=== PATIENT | female | born 1980 | race Caucasian/White ===

== ENCOUNTER 2021-08-10 19:00 | Emergency (ER) | payer OTHER ==
[~2021-08-10] VITALS: Ht 172.7 cm; Wt 101.0 kg
[2021-08-10 19:02] VITALS: BP 188/104
== END 2021-08-10 21:25 | disposition left against medical advice (07) ==
LOC: ER 19:00
DX: Z53.21 Procedure and treatment not carried out due to patient leaving prior to being seen by health care provider (principal)